=== PATIENT | female | born 1990 | race African-American/Black ===

== ENCOUNTER 2018-01-31 17:52 | Emergency (ER) | payer MEDICAID, OTHER ==
[~2018-01-31] VITALS: Ht 188 cm; Wt 110.0 kg
[2018-01-31] MEDS ORDERED: METHYLPREDNISOLONE SOD SUCC 125 MG/2 ML VIAL IV STA (21:21)
[2018-01-31] MEDS ORDERED: IPRATROPIUM BROMIDE (0.02%) 0.5MG/2.5ML NEB HHN STA (21:21)
[2018-01-31] MEDS ORDERED: ALBUTEROL (0.083%) 2.5MG/3ML NEB HHN STA (21:21)
[2018-01-31] MEDS ORDERED: ALBUTEROL (0.083%) 2.5MG/3ML NEB HHN ONE (21:30)
[2018-01-31 22:43] VITALS: BP 133/65
== END 2018-01-31 23:06 | disposition home or self-care (01) ==
LOC: ER 19:23
DX: J44.1 Chronic obstructive pulmonary disease with (acute) exacerbation (principal)
CPT/HCPCS: 71045; 81025; 96374; 99284; J2930; J7611; Z7610

== ENCOUNTER 2021-01-14 11:13 | Inpatient (IN) | payer MEDICAID ==
[~2021-01-14] VITALS: Ht 188 cm; Wt 113.4 kg
[2021-01-14] MEDS ORDERED: LACTATED RINGERS 1,000 ML IV SCH (11:45)
[2021-01-14] MEDS ORDERED: METHYLERGONOVINE MALEATE 0.2 MG/ML IM PRN (11:45)
[2021-01-14] MEDS ORDERED: MISOPROSTOL 100MCG TABLET VG SCH (11:45)
[2021-01-14] MEDS ORDERED: LIDOCAINE HCL 1% 20ML VIAL (Pyxis) INJ INFIL SCH (11:45)
[2021-01-14] MEDS ORDERED: DEXT 5%/LR + PITOCIN 20UNITS/L 1,000 ML IV SCH ×2 (11:45→12:15)
[2021-01-14] MEDS ORDERED: CARBOPROST TROMETHAMINE 250 MCG/ML AMPUL IM PRN (11:45)
[2021-01-14] MEDS ORDERED: RHO(D) IMMUNE GLOBULIN 300 MCG/SYR IM PRN (12:15)
[2021-01-14] MEDS ORDERED: IBUPROFEN 400MG TABLET PO PRN (12:15)
[2021-01-14] MEDS ORDERED: BENZOCAINE/LANOLIN/ALOE VERA SPRAY TOP PRN (12:15)
[2021-01-14] MEDS ORDERED: BISACODYL 10MG SUPP PR PRN (12:15)
[2021-01-14] MEDS ORDERED: DIPHENHYDRAMINE 25MG CAPSULE PO PRN (12:15)
[2021-01-14] MEDS ORDERED: GLYCERIN/WITCH HAZEL LEAF MEDICATED PAD TOP PRN (12:15)
[2021-01-14] MEDS ORDERED: HEMORRHOIDAL SUPP PR PRN (12:15)
[2021-01-14] MEDS ORDERED: ACETAMINOPHEN WITH CODEINE 300/30MG TABLET PO PRN ×2 (12:15)
[2021-01-14] MEDS ORDERED: ALBUTEROL 6.7GM HFA INHALER ORI PRN (12:30)
[2021-01-14 12:49] LABS: CLARITY URINE CLOUDY (CLEAR); COLOR URINE YELLOW (YELLOW); KETONES URINE 1+ (NEGATIVE); LEUKOCYTE ESTERASE URINE NEGATIVE (NEGATIVE); NITRITE URINE NEGATIVE (NEGATIVE); OCCULT BLOOD URINE TRACE (NEGATIVE); PROTEIN URINE NEGATIVE (NEGATIVE); SPECIFIC GRAVITY URINE 1.018 (1.005-1.030); UROBILINOGEN URINE 0.2 E.U./dL (0.2-1.0)
[2021-01-14 13:11] LABS: *AMPHETAMINES SCREEN URINE NEGATIVE (NEGATIVE); *BARBITURATES SCREEN URINE NEGATIVE (NEGATIVE); *BENZODIAZEPINES SCREEN URINE NEGATIVE (NEGATIVE); *COCAINE SCREEN URINE NEGATIVE (NEGATIVE)
[2021-01-14 13:13] LABS: METHADONE URINE SCREEN NEGATIVE (NEGATIVE); OPIATES URINE SCREEN NEGATIVE (NEGATIVE); PHENCYCLIDINE URINE SCREEN NEGATIVE (NEGATIVE)
[2021-01-14 13:16] LABS: CANNABINOID URINE SCREEN PRESUMTIVE POSITIVE (NEGATIVE)
[2021-01-14 14:30] VITALS: BP 128/76
[2021-01-14 15:01] VITALS: BP 120/68
[2021-01-14 16:46] VITALS: BP 123/67
[2021-01-14 17:39] LABS: HEMATOCRIT. 33.3 % (36.0-48.0); HEMOGLOBIN. 11.6 g/dL (12.0-16.0); MEAN CORPUSCULAR HEMOGLOBIN 35.2 pg (28.0-32.0); MEAN PLATELET VOLUME 8.4 fl (7.4-10.4); PLATELET 230 x1000/uL (130-400); RED CELL DISTRIBUTION WIDTH 12.7 % (11.6-14.6)
[2021-01-14 17:48] LABS: INR 0.9; PARTIAL THROMBOPLASTIN TIME 25.6 sec (23.4-31.0); PROTHROMBIN TIME 10.1 sec (9.6-11.0)
[2021-01-14 17:58] LABS: PLATELET ESTIMATE NORMAL
[2021-01-14 18:20] LABS: HEPATITIS B SURFACE ANTIGEN NEGATIVE
[2021-01-14 20:00] VITALS: BP 101/57
[2021-01-14] MEDS ORDERED: DOCUSATE SODIUM 100MG CAPSULE PO SCH (21:00)
[2021-01-14] MEDS: MAGNESIUM/ALUMINUM HYDROXIDE/SIMETHICONE 30ML UDC PO SCH (21:51)
[2021-01-14] MEDS: SIMETHICONE 80MG TABLET CHEW PO SCH (21:51)
[2021-01-15 03:15] VITALS: BP 108/55
[2021-01-15 06:32] LABS: BASOPHILS % 0.2 % (0.0-2.0); EOSINOPHILS % 0.6 % (0.0-5.0); HEMATOCRIT. 30.4 % (36.0-48.0); HEMOGLOBIN. 10.2 g/dL (12.0-16.0); LYMPHOCYTES % 12.9 % (20.0-50.0); MEAN CORPUSCULAR HEMOGLOBIN 34.6 pg (28.0-32.0); MEAN CORPUSCULAR VOLUME 103.2 fL (81.0-99.0); MEAN PLATELET VOLUME 8.9 fl (7.4-10.4); MONOCYTES % 5.9 % (2.0-8.0); NEUTROPHILS % 80.4 % (40.0-76.0); PLATELET 193 x1000/uL (130-400); RED BLOOD CELL COUNT 2.95 mill/uL (4.2-5.4); RED CELL DISTRIBUTION WIDTH 12.8 % (11.6-14.6)
[2021-01-15 07:37] VITALS: BP 112/52
[2021-01-15] MEDS: SIMETHICONE 80MG TABLET CHEW PO SCH ×3 (08:43→17:30)
[2021-01-15] MEDS: MAGNESIUM/ALUMINUM HYDROXIDE/SIMETHICONE 30ML UDC PO SCH ×3 (08:43→17:50)
[2021-01-15] MEDS: FERROUS SULFATE 325MG TABLET PO SCH ×3 (08:44→17:50)
[2021-01-15] MEDS ORDERED: PRENATAL VIT/FE FUMARATE/FA TABLET PO SCH (09:00)
[2021-01-15 15:53] VITALS: BP 114/54
[2021-01-22 04:10] LABS: CANNABINOID CONFIRMATION URINE Positive (.)
== END 2021-01-15 21:30 | disposition left against medical advice (07) | DRG 560 ==
LOC: 8 EST LDRP 11:13 → 8EST 14:10
PROVIDERS: ADMIT Obstetrics & Gynecology; ATTEND Obstetrics & Gynecology
PROC: 10E0XZZ Delivery of Products of Conception, External Approach (ICD-10-PCS; principal; 2021-01-14)
DX: Z39.0 Encounter for care and examination of mother immediately after delivery (principal); Z37.0 Single live birth; Z53.29 Procedure and treatment not carried out because of patient's decision for other reasons
CPT/HCPCS: 36415; 80305; 80349; 81003; 85025; 86592; 86703; 86762; 86850; 86900; 87340; 99281; J2590; J7120